=== PATIENT | female | born 1965 | race Hispanic/Latino ===

== ENCOUNTER 2017-07-21 07:34 | Day surgery (SDC) | payer MEDICARE, OTHER ==
[2017-07-18 09:04] VITALS: BMI 50.8
[2017-07-21 07:54] LABS: #Eosinphils 0.1 thou/uL (0.0-0.7); #Lymphocytes 1.4 thou/uL (1.20-3.40); #Monocytes 0.4 thou/uL (0.11-0.59); #Neutrophils 3.5 thou/uL (1.40-6.50); %Basophils 0.8 % (0.0-1.0); %Eosinophils 2.1 % (0.0-10.0); %Lymphocytes 25.8 % (21.0-51.0); %Monocytes 6.5 % (0.0-10.0); %Neutrophils 64.8 % (42.0-75.0); Hemoglobin 10.8 g/dL (12.0-16.0); Mean Corpuscular HGB CONC 33.3 g/dL (32.0-36.0); Mean Corpuscular Hemoglobin 28.8 pg (27.0-31.0); Mean Corpuscular Volume 86.5 fl (81.0-99.0); Mean Platelet Volume 7.5 fL (7.4-10.4); Platelet Count 120 thou/uL (130-400); RBC Distribution Width 14.7 % (11.5-14.5); Red Blood Cell (RBC) Count 3.76 mill/uL (4.20-5.40); White Blood Cell (WBC) Count 5.5 thou/uL (4.8-10.8)
[2017-07-21 08:02] LABS: INR-International Normal Ratio 1.4; PTT 39.8 SEC (22.9-36.1); Prothrombin Time 17.1 SEC (12.0-14.7)
[2017-07-21] MEDS ORDERED: Sodium Bicarbonate 2.5 MEQ/5 ML VIAL ONE (08:40)
[2017-07-21] MEDS ORDERED: Midazolam HCl 2 mg/2 ml Vial ONE (08:41)
[2017-07-21] MEDS ORDERED: Fentanyl 100 MCG/2 ML VIAL ONE (08:41)
[2017-07-21 08:53] VITALS: BP 156/63; TEMP 97
--- NOTE | 2017-07-21 10:31 | ULT ---
ULTRASOUND GUIDED LIVER BIOPSY: Indication: Increased liver function test. Request is made for biopsy in the radiology department. FINDINGS: 2 cm length 18 gauge core specimens were taken from the left lobe of the liver from an anterior appro ach with ultrasound guidance. Post procedural ultrasound shows no hematoma. After being [facility], the patient complained of increased pain. The patient was brought back t o ultrasound and repeat images were obtained. No evidence of hematoma identified. Patient was given T ylenol orally and the pain subsided. She is continuing to be watched in [facility] prior to discharge. PROCEDURE NOTE: Procedure was discussed with the patient and informed permit was signed. Anterior skin was prepped and draped in a sterile manner. Left lobe of the liver is chosen for punctu re using a sub-xiphoid approach just to the right of midline. Local anesthesia was administered with Lidocaine and Bicarb. Tiny skin incision was made. A 17 gauge guide needle with trocar in place was i ntroduced under ultrasound guidance and was placed just beyond the liver capsule in the anterior left lobe under ultrasound guidance. Trocar was removed and biopsy gun attached. A 2.5 cm 18 gauge core s zakiya was obtained and placed in Formalin. A second 2 cm specimen was obtained from the same locat ion. Needle was removed. Pressure was applied. Post procedure ultrasound showed no evidence of hematoma. P atient was sent to [facility] for monitoring prior to discharge. POS: FENG
== END 2017-07-21 12:35 | disposition home or self-care (01) ==
LOC: ULT 07:34
PROVIDERS: ATTEND Internal Medicine Gastroenterology
PROC: 0FB23ZX Excision of Left Lobe Liver, Percutaneous Approach, Diagnostic (ICD-10-PCS; principal; 2017-07-21)
DX: K75.81 Nonalcoholic steatohepatitis (NASH) (principal); K74.69 Other cirrhosis of liver; Z79.84 Long term (current) use of oral hypoglycemic drugs; Z79.82 Long term (current) use of aspirin; Z79.899 Other long term (current) drug therapy
CPT/HCPCS: 36415; 47000; 76942; 85025; 85610; 85730; 88307; 88313; J2250; J3010

== ENCOUNTER 2017-08-18 07:06 | Day surgery (SDC) | payer MEDICARE ==
[2017-08-15 09:09] VITALS: BMI 52.7
[2017-08-18] MEDS ORDERED: PROPOFOL 200 MG/20 ML VIAL ONE ×2 (11:32→12:01)
--- NOTE | 2017-08-18 11:32 | OP ---
DATE OF PROCEDURE: 08/18/2017 PROCEDURE: Esophagogastroduodenoscopy. SURGEON: Bobby Lozano M.D. MEDICATIONS: Given per Anesthesiology Department. PREPROCEDURE DIAGNOSES: Cirrhosis, evidence of portal hypertension, evaluation for esophageal varice s. POSTPROCEDURE DIAGNOSES: 1. No esophageal varices. 2. Benign antral polyps, otherwise normal upper endoscopy. PROCEDURE IN DETAIL: Written consent was obtained prior to procedure. After adequate sedation, the forward-viewing endoscope was advanced down the hypopharynx under direct vision to the second portion of duodenum. Both the second portion and the bulb appeared normal. Pylorus was patent. A few smal l benign polyps were noted in the gastric antrum. The body, fundus and cardia all appeared normal. Retroflexion did not show any abnormality or gastric varices. GE junction was located at 40 cm from the incisors. The esophagus appeared normal. ASSESSMENT: No evidence of esophageal varices or portal gastropathy. PLAN: Resume medication.
== END 2017-08-18 11:40 | disposition home or self-care (01) ==
LOC: SDC 07:06
PROVIDERS: ATTEND Internal Medicine Gastroenterology
PROC: 0DJ08ZZ Inspection of Upper Intestinal Tract, Via Natural or Artificial Opening Endoscopic (ICD-10-PCS; principal; 2017-08-18)
DX: K31.7 Polyp of stomach and duodenum (principal); K75.81 Nonalcoholic steatohepatitis (NASH); K74.60 Unspecified cirrhosis of liver; E78.00 Pure hypercholesterolemia, unspecified; E11.9 Type 2 diabetes mellitus without complications; I10 Essential (primary) hypertension; Z79.82 Long term (current) use of aspirin; Z79.84 Long term (current) use of oral hypoglycemic drugs; Z79.899 Other long term (current) drug therapy
CPT/HCPCS: 36416; J2704

== ENCOUNTER 2020-10-18 07:09 | Day surgery (SDC) | payer MEDICARE ==
[2020-10-17 12:19] VITALS: BMI 46.5
[2020-10-18] MEDS ORDERED: Midazolam HCl 2 mg/2 ml Vial ONE (08:48)
[2020-10-18] MEDS ORDERED: Ketamine 50 MG/ML (10ML VIAL) ONE (08:49)
[2020-10-18] MEDS ORDERED: PROPOFOL 200 MG/20 ML VIAL ONE (08:59)
== END 2020-10-18 10:45 | disposition home or self-care (01) ==
LOC: SDC 07:09
PROVIDERS: ATTEND Internal Medicine Gastroenterology
PROC: 0DJ08ZZ Inspection of Upper Intestinal Tract, Via Natural or Artificial Opening Endoscopic (ICD-10-PCS; principal; 2020-10-18)
DX: K76.6 Portal hypertension (principal); K31.89 Other diseases of stomach and duodenum; K74.60 Unspecified cirrhosis of liver; K75.81 Nonalcoholic steatohepatitis (NASH); K21.9 Gastro-esophageal reflux disease without esophagitis; E11.9 Type 2 diabetes mellitus without complications; I10 Essential (primary) hypertension; E78.00 Pure hypercholesterolemia, unspecified; G47.33 Obstructive sleep apnea (adult) (pediatric); M42.00 Juvenile osteochondrosis of spine, site unspecified; Z79.82 Long term (current) use of aspirin; Z79.84 Long term (current) use of oral hypoglycemic drugs; Z79.899 Other long term (current) drug therapy; Z98.84 Bariatric surgery status
CPT/HCPCS: J2250; J2704